=== PATIENT | male | born 1985 | race Caucasian/White ===

== ENCOUNTER 2016-11-25 07:09 | Emergency (ER) | payer BC, OTHER ==
[~2016-11-25] VITALS: Ht 167.6 cm; Wt 61.2 kg
[2016-11-25 07:19] VITALS: BP 134/77
== END 2016-11-25 10:20 | disposition left against medical advice (07) ==
LOC: ER 07:09 → EDBD 07:09 → ER 10:20
DX: R05 Cough (principal); Z53.21 Procedure and treatment not carried out due to patient leaving prior to being seen by health care provider